=== PATIENT | male | born 1960 | race Caucasian/White ===

== ENCOUNTER 2018-01-26 09:30 | Day surgery (SDC) | payer OTHER ==
[~2018-01-26 09:30] MED LIST: CEFAZOLIN 1 GM INJ; DEXAMETHASONE 4 MG/ML 1 ML INJ; LIDOCAINE 2% (SDV) 5 ML INJ; ONDANSETRON 4 MG INJ; PROPOFOL 200 MG INJ
[2018-01-26] MEDS ORDERED: FENTAnyl 50 MCG/ML VIAL (11:44)
[2018-01-26] MEDS ORDERED: MIDAZOLAM 1 MG/ML 2 ML INJ (11:45)
[2018-01-26] MEDS ORDERED: METOCLOPRAMIDE 10 MG INJ (12:31)
[2018-01-26] MEDS: LIDOCAINE 1%/EPI 30 ML INJ (14:26)
[2018-01-26] MEDS: COCAINE 4% 4 ML TOP (14:26)
[2018-01-26] MEDS ORDERED: PHENYLephrine (100 MCG/ML) 5ML SYG (14:37)
[2018-01-26] MEDS: NEOMYC/POLYMYX/BACIT 30 GM OINT (14:48)
[2018-01-26] MEDS ORDERED: MEPERIDINE 25 MG INJ IV (15:30)
[2018-01-26] MEDS ORDERED: HYDROmorphONE (0.2 MG/ML) 10ML SYG IV ×2 (15:30)
[2018-01-26] MEDS ORDERED: ONDANSETRON 4 MG INJ IV (15:30)
[2018-01-26] MEDS ORDERED: DIPHENHYDRAMINE 50 MG INJ IV (15:30)
[2018-01-26] MEDS ORDERED: METOCLOPRAMIDE 10 MG INJ IV (15:30)
[2018-01-26] MEDS ORDERED: FENTAnyl 50 MCG/ML VIAL IV ×2 (15:30)
[2018-01-26] MEDS ORDERED: hydrALAzine 20 MG INJ IV (15:30)
[2018-01-26] MEDS ORDERED: LABETALOL HCL 20MG INJ IV (15:30)
[2018-01-26] MEDS ORDERED: THROMBIN 5000 UNIT VIAL (15:39)
== END 2018-01-26 16:45 | disposition home or self-care (01) ==
LOC: SDS 09:30
DX: J34.2 Deviated nasal septum (principal); J33.9 Nasal polyp, unspecified; J34.3 Hypertrophy of nasal turbinates; E66.01 Morbid (severe) obesity due to excess calories; Z68.41 Body mass index [BMI] 40.0-44.9, adult
CPT/HCPCS: 30140; 88304